=== PATIENT | female | born 1940 | race African-American/Black ===

== ENCOUNTER → 2020-05-19 | Emergency (ER) | payer OTHER ==
[~2020-05-19] VITALS: Ht 160 cm; Wt 64.9 kg
[~2020-05-19] MED LIST: ACETAMINOPHEN650 M2 PO; CARDURA1 MG PO; CARTIA XT300 MG; CRESTOR20 MG; JANUVIA100 MG; LOSARTAN-HCTZ1 EAC2; MECLIZINE HCL25 MG PO
== END | disposition home or self-care (01) ==
LOC: ER 22:31
DX: R42 Dizziness and giddiness (principal); B34.9 Viral infection, unspecified; E87.6 Hypokalemia

== ENCOUNTER 2024-08-23 08:51 | Outpatient (CLI) | payer OTHER ==
[2024-08-23 10:19] LABS: BASO % 0.7 % (0.1-1.2); EOS # 0.05 (0.04-0.54); EOS % 0.9 % (0.7-7.0); LYMPH # 1.22 (1.18-3.74); LYMPH % 22.8 % (19.3-53.1); MEAN PLATELET VOLUME 12.40 fl (9.4-12.4); MONO # 0.76 (0.24-0.82); NEUT # 3.25 (1.56-6.13); NEUT % 61.0 % (34.0-71.1); RED CELL DISTRIBUTION WIDTH 14.2 % (11.6-14.4)
[2024-08-23 10:24] LABS: MONO % 14.2 % (4.7-12.5)
[2024-08-23 11:13] LABS: ALT/SGPT 36.0 U/L (12-78); AST/SGOT 29.0 U/L (15-37); BILIRUBIN TOTAL 0.86 mg/dL (0.3-1.2); BUN CREA RATIO 20.0 (7.0-25.0); CREATININE SERUM 0.92 mg/dL (0.55-1.02); FE 101.0 ug/dl (50-170); GFR 58.44; GLOBULINA 3.5 G/DL (2.4-3.5); GLUCOSE FASTING 108.0 mg/dL (65-100); LDH 209.0 U/L (84-246); OSMOLALITY SERUM 287.0 MOSM/KG (275-295); T4 FREE 0.96 NG/ML (0.76-1.46); TSH 3.66 uIU/mL (0.358-3.74)
[2024-08-23 11:29] LABS: FOLIC ACID > 20.00 ng/ml (4.78-20)
[2024-08-23 13:02] LABS: MANUAL PLATELET COUNT 190
[2024-08-24 09:11] LABS: ANTI THYROID PEROXIDASE 15.0 IU/mL (0-34); hav igm Negative (Negative); hep b c Negative (Negative); hep b s ag Negative (Negative)
[2024-08-24 13:12] LABS: TRANSFERIN 281.0 mg/dL (149-313)
[2024-08-25 13:08] LABS: PARIETAL CELL ANTIBODIES 38.9 Units (0.0-20.0)
== END 2024-08-23 08:58 | disposition home or self-care (01) ==
LOC: LAB 08:51
PROVIDERS: ATTEND Internal Medicine Hematology & Oncology
DX: E05.90 Thyrotoxicosis, unspecified without thyrotoxic crisis or storm (principal); Z80.3 Family history of malignant neoplasm of breast; D69.6 Thrombocytopenia, unspecified; D51.3 Other dietary vitamin B12 deficiency anemia; I10 Essential (primary) hypertension; E78.2 Mixed hyperlipidemia; E55.9 Vitamin D deficiency, unspecified; D50.8 Other iron deficiency anemias; R79.9 Abnormal finding of blood chemistry, unspecified; R74.02 Elevation of levels of lactic acid dehydrogenase [LDH]; K76.89 Other specified diseases of liver; D51.1 Vitamin B12 deficiency anemia due to selective vitamin B12 malabsorption with proteinuria; E03.8 Other specified hypothyroidism; E06.3 Autoimmune thyroiditis; B17.9 Acute viral hepatitis, unspecified; Z11.59 Encounter for screening for other viral diseases